=== PATIENT | male | born 1950 | race Caucasian/White ===

== ENCOUNTER 2023-05-03 05:31 | Emergency (ER) | payer MEDICARE ==
[~2023-05-03] VITALS: Ht 177.8 cm; Wt 106.6 kg
[~2023-05-03 05:31] MED LIST: ALBU1.257 NEB; HYDR2TAB35 PO; LEVO100T9 PO; METH10CP PO; MORP15TA PO
[2023-05-03] MEDS ORDERED: oxyCODONE/APAP (5/325 MG) 1 UDTAB TABLET ONE (06:07)
[2023-05-03] MEDS ORDERED: oxyCODONE/APAP (5/325 MG) 1 UDTAB TABLET PO ONE (06:30)
[2023-05-03] MEDS ORDERED: FLUT9.9S16 NS (08:13)
[2023-05-03] MEDS ORDERED: FLUT16SP16 BNOSTRILS (08:20)
[2023-05-03 08:25] VITALS: BP 173/86; O2SAT 100
== END 2023-05-03 08:25 | disposition home or self-care (01) ==
LOC: ER 05:33
DX: J32.9 Chronic sinusitis, unspecified (principal); I10 Essential (primary) hypertension; J44.9 Chronic obstructive pulmonary disease, unspecified; M19.90 Unspecified osteoarthritis, unspecified site; Z88.2 Allergy status to sulfonamides; Z88.8 Allergy status to other drugs, medicaments and biological substances
CPT/HCPCS: 71045-TC